=== PATIENT | female | born 1970 | race Caucasian/White ===

== ENCOUNTER 2018-09-18 13:25 | Emergency (ER) | payer BC | END 2018-09-18 14:37 | disposition home or self-care (01) | LOC: EDH 13:25 | DX: S63.617A Unspecified sprain of left little finger, initial encounter (principal); F31.9 Bipolar disorder, unspecified; W18.39XA Other fall on same level, initial encounter; Y93.89 Activity, other specified; Y92.009 Unspecified place in unspecified non-institutional (private) residence as the place of occurrence of the external cause; Y99.8 Other external cause status | CPT/HCPCS: 73140 ==